=== PATIENT | male | born 1965 | race African-American/Black ===

== ENCOUNTER 2019-02-10 21:47 | Emergency (ER) | payer OTHER ==
[2019-02-10] MEDS ORDERED: MORPHINE SULFATE 10 MG/ML INJ IV ONE (23:04)
[2019-02-10] MEDS ORDERED: NORMAL SALINE 1000 ML 1,000 ML IV ONE (23:04)
--- NOTE | 2019-02-10 23:05 | ER Document Report ---
ED Medical Screen (RME) - General Chief Complaint: Flank Pain Stated Complaint: MIDDLE BACK PAIN Time Seen by Provider: 02/10/19 23:00 Notes: Patient is a 53-year-old male who presents to the emergency department with a chief complaint of left flank pain. He states that his symptoms started 3 days ago. The pain starts in his left flank area and wraps around to the front of his abdomen. Patient states that he has had a similar feeling when he had diverticulitis. He was admitted to the hospital in 2016 for it. Patient has a past medical history of hypertension and G6PD deficiency Exam: CVA tenderness noted to left flank area. I have greeted and performed a rapid initial assessment of this patient. A comprehensive ED assessment and evaluation of the patient, analysis of test results and completion of medical decision making process will be conducted by an additional ED providers. TRAVEL OUTSIDE OF THE [place] IN LAST 30 DAYS: No - Related Data Allergies/Adverse Reactions: aspirin Allergy (Verified 01/18/16 12:25) Home Medications: lisinopril Past Medical History - Social History Chew tobacco use (# tins/day): No Frequency of alcohol use: Social Drug Abuse: None Family history: Reviewed & Not Pertinent - Past Medical History Cardiac Medical History: Reports: Hx Hypertension Past Surgical History: Reports: Hx Orthopedic Surgery - Right shoulder surgery 1993. Physical Exam - Vital signs Vitals: Temp Pulse Resp BP Pulse Ox 98.4 F 87 20 153/82 H 97 02/10/19 22:33 02/10/19 22:33 02/10/19 22:33 02/10/19 22:33 02/10/19 22:33 Course - Vital Signs Vital signs: Temp Pulse Resp BP Pulse Ox 98.4 F 87 20 153/82 H 97 02/10/19 23:00 02/10/19 23:00 02/10/19 23:00 02/10/19 23:00 02/10/19 23:00
[2019-02-11 00:01] LABS: ABSOLUTE EOSINOPHILS # (AUTO) 0.2 10^3/uL (0.0-0.6); ABSOLUTE LYMPHOCYTES (AUTO) 2.5 10^3/uL (0.5-4.7); ABSOLUTE MONOCYTES (AUTO) 1.1 10^3/uL (0.1-1.4); ABSOLUTE NEUT (AUTO) 4.1 10^3/uL (1.7-8.2); BASOPHILS % (AUTO) 0.3 % (0-2); HEMATOCRIT 38.8 % (37.9-51.0); HEMOGLOBIN 12.8 g/dL (13.5-17.0); LYMPHOCYTES % (AUTO) 31.9 % (13-45); MEAN CORPUSCULAR HEMOGLOBIN 28.5 pg (27.0-33.4); MEAN CORPUSCULAR VOLUME 87 fl (80-97); MONOCYTES % (AUTO) 13.8 % (3-13); PLATELET COUNT 305 10^3/uL (150-450); RED BLOOD COUNT 4.49 10^6/uL (4.35-5.55); RED CELL DISTRIBUTION WIDTH 12.6 % (11.5-14.0); TOTAL CELLS COUNTED % (AUTO) 100 %; WHITE BLOOD COUNT 7.8 10^3/uL (4.0-10.5)
[2019-02-11 00:03] LABS: APPEARANCE,URINE CLEAR; BILIRUBIN,URINE NEGATIVE (NEGATIVE); COLOR,URINE YELLOW; GLUCOSE, URINE NEGATIVE (NEGATIVE); KETONES,URINE NEGATIVE (NEGATIVE); LEUKOCYTE ESTERASE,URINE NEGATIVE (NEGATIVE); NITRITE,URINE NEGATIVE (NEGATIVE); PROTEIN,URINE NEGATIVE (NEGATIVE); UROBILINOGEN,URINE NEGATIVE mg/dL (<2.0)
[2019-02-11 00:22] LABS: ALKALINE PHOSPHATASE 50 U/L (38-126); ANION GAP 10 (5-19); ASPARTATE AMINO TRANSFERASE 17 U/L (17-59); BILIRUBIN,DIRECT 0.1 mg/dL (0.0-0.4); BILIRUBIN,TOTAL 0.8 mg/dL (0.2-1.3); BLOOD UREA NITROGEN 13 mg/dL (7-20); CALCIUM 8.9 mg/dL (8.4-10.2); CARBON DIOXIDE 26 mmol/L (22-30); CHLORIDE 106 mmol/L (98-107); GLUCOSE 99 mg/dL (75-110); POTASSIUM 3.8 mmol/L (3.6-5.0); TOTAL PROTEIN 7.1 g/dL (6.3-8.2)
--- NOTE | 2019-02-11 02:48 | ER Document Report ---
ED General - General Chief Complaint: Flank Pain Stated Complaint: MIDDLE BACK PAIN Time Seen by Provider: 02/10/19 23:00 TRAVEL OUTSIDE OF THE [place] IN LAST 30 DAYS: No - HPI Severity: Moderate Pain Level: 4 Associated symptoms: Sweating Exacerbated by: Denies Relieved by: Other - Tylenol Similar symptoms previously: Yes - 2016 when he had Diverticulitis Recently seen / treated by doctor: No Notes: 53 year old male with a history of HTN and Diverticulitis in 2016 here for left flank and left upper abdominal pain for the last several days. The patient says this feels like when he had diverticulitis except the pain back then was more in his front then back. The patient says he woke up in a cold sweat several nights ago and he has has been having trouble sleeping due to his pains. The patient denies nausea, vomiting, diarrhea, urinary symptoms, fevers, chills - Related Data Allergies/Adverse Reactions: aspirin Allergy (Verified 01/18/16 12:25) Home Medications: lisinopril Past Medical History - Social History Smoking Status: Never Smoker Chew tobacco use (# tins/day): No Frequency of alcohol use: Social Drug Abuse: None Family History: Hypertension Patient has suicidal ideation: No Patient has homicidal ideation: No - Past Medical History Cardiac Medical History: Reports: Hx Hypertension Past Surgical History: Reports: Hx Orthopedic Surgery - Right shoulder surgery 1993. Review of Systems - Review of Systems Constitutional: Other - sweats EENT: No symptoms reported Cardiovascular: No symptoms reported Respiratory: No symptoms reported Gastrointestinal: Abdominal pain - left upper quadrant and left flank Genitourinary: No symptoms reported Male Genitourinary: No symptoms reported Musculoskeletal: No symptoms reported Skin: No symptoms reported Hematologic/Lymphatic: No symptoms reported Neurological/Psychological: No symptoms reported Physical Exam - Vital signs Vitals: Temp Pulse Resp BP Pulse Ox 98.4 F 87 20 153/82 H 97 02/10/19 22:33 02/10/19 22:33 02/10/19 22:33 02/10/19 22:33 02/10/19 22:33 - Notes Notes: GENERAL: Well-appearing, well-nourished and in no acute distress. HEAD: Atraumatic, normocephalic. EYES: Pupils equal round and reactive to light, extraocular movements intact, sclera anicteric, conjunctiva are normal. ENT: TMs normal, nares patent, oropharynx clear without exudates. Moist mucous membranes. NECK: Normal range of motion, supple without lymphadenopathy or JVD. LUNGS: Breath sounds clear to auscultation bilaterally and equal. No wheezes rales or rhonchi. HEART: Regular rate and rhythm without murmurs, rubs or gallops. ABDOMEN: Soft, Mild Tenderness in LUQ and Left Flank, normoactive bowel sounds. No guarding, no rebound. No masses appreciated. EXTREMITIES: Normal range of motion, no pitting or edema. No clubbing or cyanosis. NEUROLOGICAL: Cranial nerves II through XII grossly intact. Normal speech, normal gait. PSYCH: Normal mood, normal affect. SKIN: Warm, Dry, normal turgor, no rashes or lesions noted. Course - Re-evaluation Re-evalutation: 02/11/19 04:58 The patient is here for left sided flank and abdominal pain. He felt like this was somewhat similar to when he had diverticulitis in the past except he did not have pain in his back then. Patient's labs today in the ER are unremarkable. Patient's CT of his abdomen/pelvis shows no acute process. Patient felt somewhat better after treatment with morphine and Toradol. Patient told to follow up with his PCP if symptoms persist. Will DC on Naproxen. - Vital Signs Vital signs: Temp Pulse Resp BP Pulse Ox 98.4 F 87 20 153/82 H 97 02/10/19 23:00 02/10/19 23:00 02/10/19 23:00 02/10/19 23:00 02/10/19 23:00 - Laboratory Result Diagrams: 02/10/19 23:10 02/10/19 23:10 Laboratory results interpreted by me: 02/10/19 23:10 Hgb 12.8 L Wright % (Auto) 13.8 H - Diagnostic Test Radiology reviewed: Image reviewed, Reports reviewed Discharge - Discharge Clinical Impression: Flank pain Abdominal pain Qualifiers: Abdominal location: left upper quadrant Qualified Code(s): R10.12 - Left upper quadrant pain Condition: Stable Disposition: HOME, SELF-CARE Instructions: Abdominal Pain ([facility]) Additional Instructions: Use Naproxen for abdominal pain along with over the counter Tylenol. Follow up with your primary care doctor if symptoms persist. You had blood work, a urine analysis, and a CT scan of your abdomen/pelvis today in the ER. Return to an ER for uncontrolled pain, fevers, chills, sweats or if worse. Prescriptions: Naproxen 500 mg PO BID PRN #14 tablet PRN Reason:
[2019-02-11] MEDS ORDERED: KETOROLAC TROMETHAMINE INJ/PF 30 MG/1 ML SDV IV ONE (04:27)
--- NOTE | 2019-02-11 04:28 | RADIOLOGY REPORT (SQ) ---
EXAM DESCRIPTION: CT ABDOMEN PELVIS WITHOUT IV CONTRAST COMPLETED DATE/TME: 02/11/2019 02:50 CLINICAL HISTORY: 53 years Male, left upper abdominal pain and left flank pain Comparison: 01/18/16 Technique: No contrast. Coronal and sagittal reformat. This exam was performed according to our departmental dose-optimization program, which includes automated exposure control, adjustment of the mA and/or kV according to patient size and/or use of iterative reconstruction technique.[facility]: Dose Right [facility]: CareDose [facility]: Dose Right [facility]: Teradose 4D [facility]: [employer] LIMITATIONS: None Findings: Bilateral perinephric fat stranding, nonspecific. Old granulomatous disease. Likely benign, low-attenuation hepatic lesion(s) not definitively characterized. Hepatic steatosis. Mild T12 intervertebral wedging. Atelectasis/scar. Colonic diverticulosis. Stool retention. Appendicolith(s) and/or retained contrast. No evidence of appendicitis. Small L5-S1 disc bulge with mild bilateral L5 foraminal stenosis. No ascites. No pneumoperitoneum. No gross evidence of gallbladder inflammation, hepatobiliary obstruction, or portal vein defect. No bowel obstruction. No hydronephrosis or hydroureter. No renal/ureteral stone. No evidence of abdominal aortic aneurysm. Unenhanced lower thorax, abdominopelvic structures, and musculoskeleton appear otherwise grossly unremarkable. Impression: No acute findings.
[2019-02-11] MEDS ORDERED: METHOCARBAMOL 750 MG TABLET PO ONE (05:12)
[2019-02-11] MEDS ORDERED: FENTANYL CITRATE INJ/PF 100 MCG/2 ML AMPUL IV ONE (05:13)
[2019-02-11 05:36] VITALS: BP 149/96
== END 2019-02-11 05:33 | disposition home or self-care (01) ==
LOC: ER 21:47
DX: R10.12 Left upper quadrant pain (principal); M54.6 Pain in thoracic spine; I10 Essential (primary) hypertension; Z88.6 Allergy status to analgesic agent
CPT/HCPCS: 36415; 83690; 85025; 80053; 81001; 74176; J3490; J1885; J2270; J7030; 96361; 96374; 96375; 99284